=== PATIENT | female | born 1955 | race Caucasian/White ===

== ENCOUNTER 2017-08-02 10:54 | Outpatient (CLI) ==
[2017-08-02 11:34] LABS: ALBUMIN 3.6 g/dL (3.4-5.0); ALBUMIN/GLOBULIN RATIO 1.06; ANION GAP 14.3; BILIRUBIN,TOTAL 0.39 mg/dL (0.00-1.20); BUN/CREATININE RATIO 16.9; CALCIUM 9.1 mg/dL (8.2-10.2); CREATININE 0.71 mg/dL (0.60-1.30); POTASSIUM 4.3 mmol/L (3.5-5.10)
== END 2017-08-02 10:55 | disposition home or self-care (01) ==
LOC: LAB 10:54
DX: M54.16 Radiculopathy, lumbar region (principal); I10 Essential (primary) hypertension; Z01.812 Encounter for preprocedural laboratory examination; Z87.448 Personal history of other diseases of urinary system
CPT/HCPCS: 36415; 80053